=== PATIENT | female | born 1985 | race Caucasian/White ===

== ENCOUNTER 2023-02-05 21:13 | Observation (INO) | payer OTHER, SELFPAY ==
[2023-02-05 21:14] VITALS: BP 140/100; PULSE 77; RESP 15; TEMP 36.7; O2SAT 100; BMI 36.7
--- NOTE | 2023-02-05 21:26 | US_ITS ---
We are attempting to reach an attending provider to discuss findings. An addendum with communication details will be sent when the communication is complete. STUDY: FIRST TRIMESTER OBSTETRICAL ULTRASOUND REASON FOR EXAM: Female, 38 years old lower abdominal pain, +preg -- VAGINAL BLEEDING -- -- HCG 3242 LMP: 12/15/2022 TECHNIQUE: Transabdominal and Transvaginal Transvaginal images are limited. There is a distended appearance of the bladder on several images. TECHNICAL QUALITY: Adequate. The bladder is distended during this study. Limited transvaginal ultrasound. PRIOR ULTRASOUND: None. FINDINGS: There is no demonstrated intrauterine gestational sac. The estimated gestation age (EGA) by LMP is 7 weeks, 3 days. The uterus measures 10.7 x 6.0 x 7.1 cm measured at the radiologist workstation on transabdominal imaging.. The visualized thickened appearance of the endometrium measuring up to 1.6 cm to 3.1 cm.. There is no demonstrated uterine fibroid. The cervix is closed. The right ovary not visualized with certainty. The left ovary measures . There is no left ovarian cyst. There is no visualized left adnexal mass or complex lesion. The left adnexa there is a visualized complex appearing structure with a solid periphery measuring 3.6 cm and a hypoechoic center measuring 1.2 cm. There is no visualized internal echogenicity suggests that suggest a pole. This could potentially represent a complex follicle versus a early ectopic. See image 47 transabdominal views. There is also an adjacent cystic structure associated with a indeterminate almost tubular appearing density which could potentially represent a distended fallopian tube. There is moderate free fluid. US/Transvaginal w/Preg US IMPRESSION: No visualized gestational sac within the uterus. There is free fluid present. There is a complex appearance of the left ovary for which an ectopic is not excluded. In addition the right ovary is not visualized. There is visualized moderate free fluid which also can be associated with ectopic in a patient with a beta hCG of 3242. There is a tubular cystic structure which could potentially represent a distended left side fallopian tube and complex cyst. Image [id number] cini view. Thickened appearance of the endometrium. Electronically Signed: Kinsey Krishnamurthy MD at 0:46 EDT ,
[2023-02-05] MEDS: 0.9% Normal Saline (1000mL) 1,000 ML 1000 ML IV (22:15)
[2023-02-05] MEDS: Acetaminophen 325 MG Tablet PO (22:16)
[2023-02-05 22:22] LABS: Absolute Lymphocyte Count 1.32 X10^3/uL (0.83-4.51); Basophil# 0.02 X10^3/uL; Basophil% 0.2 % (0-1); Eosinophil# 0.01 X10^3/uL; Eosinophils% 0.1 % (0-5); Hematocrit 39.7 % (37-47); Hemoglobin 13.4 g/dL (12.0-15.0); Lymphocyte # 1.32 X10^3/ul (0.83-4.51); Lymphocyte % 15.2 % (19-41); Mean Corp Hgb Conc 33.8 g/dL (32-36); Mean Corpuscular Hgb 30.1 pg (27.0-32.0); Mean Corpuscular Volume 89.2 fL (81-99); Mean Platelet Vol. 10.8 fl (6.2-12.0); Monocyte# 0.34 X10^3/uL; Monocyte% 3.9 % (0-10); NRBC Flagged by Analyzer 0 % (0-5); Neutrophil # 6.97 X10^3/uL (2.7-7.7); Neutrophil % 80.3 % (47-70); Platelet Count 177 K/mm3 (150-450); RBC Distribution Width CV 12.2 % (11.6-14.6); RBC Distribution Width SD 39.8 fl (35.1-43.9); Red Blood Count 4.45 M/mm3 (4.2-5.4); White Blood Count 8.7 K/mm3 (4.4-11.0)
[2023-02-05 22:36] LABS: Anion Gap 7 (5-15); BUN 10 mg/dL (7-18); BUN/Creat Ratio 14.7 RATIO (10-20); Calcium,Total 9.5 mg/dL (8.5-10.1); Chloride 107 mmol/L (98-107); Creatinine, Serum 0.68 mg/dL (0.55-1.02); EST Glomerular Filtration Rate 103 mL/min (>60); Est Glom Filt Rate - Afr Amer 125 mL/min (>60); Estimated Creatinine Clearance 96.86 ml/min; Glucose 130 mg/dL (74-106); Potassium 3.6 mmol/L (3.5-5.1); Sodium Level 138 mmol/L (136-145)
[2023-02-05 22:41] LABS: Bacteria 0 SEEN /hpf (None Seen); Color, Urine Yellow (Yellow); Glucose, Dipstick Normal (Normal); Ketone-Dipstick Negative (Negative); Leukocyte Esterase-Dipstick 100 /ul (Negative); Mucous, Urine 0 SEEN /hpf (<or=2+); Nitrite-Dipstick Negative (Negative); Occult Blood-Urine 250 /ul (Negative); Protein-Dipstick 30 mg/dl (Negative); Urine Bilirubin Dipstick Negative (Negative); Urine Clarity Sl. Cloudy (Clear); Urine Urobilinogen Normal (Normal)
--- NOTE | 2023-02-05 22:56 | EDS_ITS ---
HPI HPI - GI History of Present Illness Chief Complaint: Abd Pain Narrative Narrative: 38-year-old female currently estimated to be 7 to 8 weeks last menstrual period at the beginning of November 2022. Patient complaining of abdominal pain which is lower and cramping. She had some spotting for several days now. She is unsure exactly of her blood type but she thinks it is a positive. No loss of fluid. No urinary symptoms. No diarrhea or constipation. Patient states she usually wakes to the second or third month to get a internal grinder. Patient A3. Has not had confirmed intrauterine PFSH PFSH Allergy/AdvReac Type Severity Reaction Status Date / Time No Known Allergies Allergy Verified 02/05/23 21:23 Social History Smoking Status: Never smoker ROS ROS ED Constitutional Constitutional ED: Denies chills, fever(s) or sweats Eyes Eyes: Denies blurry vision or change in vision ENT ENT ED: Denies ear pain or sore throat Cardiovascular Cardiovascular: Denies chest pain, palpitations or racing heartbeat Respiratory/Chest Respiratory/Chest: Denies cough, dyspnea or sputum Gastrointestinal Gastrointestinal: Reports abdominal pain; Denies constipation, diarrhea, nausea or vomiting Genitourinary Genitourinary ED: Reports other; Denies dysuria, hematuria or urinary frequency Musculoskeletal Musculoskeletal: Denies arthralgias, myalgias or neck pain Integumentary Denies abscess, Abrasions or rash Neurologic Neurologic: Denies headache(s), paresthesias or weakness Psychiatric Psychiatric: Denies anxiety, depression, suicidal ideation or suicidal thoughts Endocrine Endocrinology: Denies polydipsia or polyuria EXAM Physical Exam Const Vital Signs: 02/05/23 21:14 02/05/23 23:23 02/05/23 23:21 Temperature 98.1 F 98.8 F Temperature Source Temporal Oral Pulse Rate 77 63 58 L Respiratory Rate 15 18 18 Blood Pressure 140/100 H 82/52 L 70/45 L Blood Pressure Mean 113 62 53 Pulse Ox 100 97 95 Oxygen Delivery Method Room Air Room Air Room Air 02/05/23 23:19 02/05/23 23:23 02/06/23 00:07 Temperature Temperature Source Pulse Rate 57 L 62 72 Respiratory Rate 18 18 18 Blood Pressure 77/50 L 82/52 L 101/50 L Blood Pressure Mean 59 62 67 Pulse Ox 97 97 100 Oxygen Delivery Method Room Air Room Air Room Air 02/06/23 00:44 Temperature Temperature Source Pulse Rate 77 Respiratory Rate 18 Blood Pressure 119/73 Blood Pressure Mean 88 Pulse Ox 97 Oxygen Delivery Method Room Air Positive well nourished HEENT Reports moist mucous membranes normocephalic and atraumatic Eyes PERRL Neck no lymphadenopathy Resp normal respiratory effort Effort and Inspection: Negative for respiratory distress Cardio regular rate and regular rhythm GI GI Narrative: Bilateral lower quadrants. Gravid. No peritoneal signs. Back/Spine no CVA tenderness Neuro CN's II-XII intact bilaterally and moves all extremities Sensorium / Orientation: alert Motor Exam: strength 5/5 throughout Psych mental status grossly normal MDM MDM MDM Narrative Medical decision making narrative: 8-year-old female last menstrual period early November presenting with 7 to 8 weeks unconfirmed gestation. Differential includes for D&C, ectopic , ovarian cyst, ovarian torsion, uterine fibroids, threatened miscarriage. CBC will be obtained to assess white blood cell count, hemoglobin, platelets. BMP to assess renal function and electrolytes. Rh will be obtained as patient is unsure of her blood type. hCG quantitative will be obtained. Patient was given Tylenol for pain. She was given a liter normal saline. We will obtain obstetric ultrasound. CBC returned with a white blood cell count of 8.7. Hemoglobin stable 13.4. Platelets normal at 177. Patient became hypotensive 70/45. She started to have increasing left flank pain. hCG came back at 3242. Urinalysis was negative. BMP was unremarkable. Concern was for ruptured ectopic she was typed and screened for 2 units of blood. She is given 2 L of normal saline wide open. Her blood pressures have responded and she is now 119/73. She is not peritoneal. Obstetrics ultrasound shows concern for ectopic on the left which is likely ruptured. Discussed with OB who will take the patient to the OR. Impression: 1. Ruptured ectopic 2. Hypotension Lab Data Attestation: I reviewed the patient's lab results. Labs: Laboratory Results - last 24 hr 02/05/23 02/05/23 22:12 22:36 WBC 8.7 RBC 4.45 Hgb 13.4 Hct 39.7 MCV 89.2 MCH 30.1 MCHC 33.8 RDW Std Deviation 39.8 RDW Coeff of Tiffanie 12.2 Plt Count 177 MPV 10.8 Immature Gran % (Auto) 0.300 Neut % (Auto) 80.3 H Lymph % (Auto) 15.2 L [place] % (Auto) 3.9 Eos % (Auto) 0.1 Baso % (Auto) 0.2 Absolute Neuts (auto) 7.0 Absolute Lymphs (auto) 1.32 Nucleated RBC % 0 Sodium 138 Potassium 3.6 Chloride 107 Carbon Dioxide 24.0 Anion Gap 7 BUN 10 Creatinine 0.68 Estim Creat Clear Calc 96.86 Est GFR (MDRD) Af Amer 125 Est GFR (MDRD) Non-Af 103 BUN/Creatinine Ratio 14.7 Glucose 130 H Calcium 9.5 HCG, Quant 3242 H Urine Color Yellow Urine Clarity Sl. Cloudy Urine pH 7.0 Ur Specific [place] 1.010 Urine Protein 30 H Urine Glucose (UA) Normal Urine Ketones Negative Urine Occult Blood 250 H Urine Nitrite Negative Urine Bilirubin Negative Urine Urobilinogen Normal Ur Leukocyte Esterase 100 H Urine RBC 5-10 SEEN Urine WBC 0-5 SEEN Ur Squamous Epith Cells 0-5 SEEN Urine Bacteria 0 SEEN Urine Mucus 0 SEEN Blood Type A POSITIVE Crossmatch See Detail Radiography Diagnostic Testing: Clinical Impression(s) from Imaging Studies Obstetrics Ultrasound 02/05/23 21:26 IMPRESSION: No visualized gestational sac within the uterus. There is free fluid present. There is a complex appearance of the left ovary for which an ectopic is not excluded. In addition the right ovary is not visualized. There is visualized moderate free fluid which also can be associated with ectopic in a patient with a beta hCG of 3242. There is a tubular cystic structure which could potentially represent a distended left side fallopian tube and complex cyst. Image [id number] cini view. Thickened appearance of the endometrium. Electronically Signed: Kinsey Krishnamurthy MD at 0:46 EDT , Discharge Plan Triage Chief Complaint: Abd Pain ED Provider: Sami Fleming Dx/Rx/DC Orders Primary Care Provider: Fernando Garcia Referrals: Fernando Garcia, [Primary Care Provider] -
[2023-02-05 23:06] LABS: hCG Titer Quant., Serum 3242 mIU/mL (1-3)
[2023-02-05 23:10] LABS: Red Blood Cells-Urine 5-10 SEEN /hpf (0-5); Squamous Epithelial Cells - UA 0-5 SEEN /hpf (5-10); White Blood Cells 0-5 SEEN /hpf (0-5)
[2023-02-05 23:19] VITALS: BP 77/50; PULSE 57; RESP 18; O2SAT 97
[2023-02-05 23:21] VITALS: BP 70/45; PULSE 58; RESP 18; O2SAT 95
[2023-02-05 23:23] VITALS: BP 82/52; PULSE 62; PULSE 63; RESP 18; TEMP 37.1; O2SAT 97
[2023-02-05] MEDS: Ondansetron 4 MG/2 ML Vial IV (23:24)
[2023-02-05] MEDS: 0.9% Normal Saline (1000mL) 1,000 ML 999 ML IV (23:25)
--- NOTE | 2023-02-05 23:28 | ED.RN ---
pt notified staff pt was feeling like she could pass out. This nurse responded to room checked vitals and assessed pt. pt symptomatic hypotension with dizziness, sweating, pale. pt placed Trendelenburg position with some relief report. doctor notified.
[2023-02-06] VITALS (15 sets, daily range): BP systolic 83–139; BP diastolic 45–89; PULSE 67–88; RESP 16–18; TEMP 36.2–37.3; O2SAT 96–100; BMI 36.7
--- NOTE | 2023-02-06 | FAL_PTH ---
PATIENT: BONILLA ESTEVEZ LOC: MS3 U#:[id number] AGE/SX: 38/F ROOM: [facility] RE02/06/[address]: Dr. Vannessa Au DO : 1985 BED: 1 DIS: 02/07/2023 SPEC #: [id number] RECD: 02/07/23 08:50 STATUS: OLAYINKA PRESTON #: [id number] PEDRO: 02/06/23 00:[address]: Vannessa Au DEPT: SURGICAL PATHOLOGY RECD BY: Hung Johnson ENTERED: 02/07/23 09:44 SP TYPE: ECTOPIC OTHR DR: Dr. Fernando Garcia DO Tissues: ECTOPIC PREG Procedures: Surgery Specimen Level IV HEADER OPERATION: Diagnostic laparoscopic removal ectopic PRE-OP DIAGNOSIS: Ruptured ectopic TISSUE SUBMITTED: Left fallopian tube, partial left ovary and ectopic MICROSCOPIC DIAGNOSIS Left ovary and fallopian tube, salpingo-oophorectomy: Chorionic villi and decidualized tissue consistent with intratubal . Ovary with follicular, corpus luteal cysts and corpora albicantia. Fallopian tube with benign paratubal cysts. AM:jany 02/08/2023 MICROSCOPIC DESCRIPTION Slides are reviewed. GROSS DESCRIPTION Received in fixative is one container labeled with the patient's name and designated left fallopian tube and left ovary. The specimen consists of a cystic left ovary measuring 3.5 x 2.5 x 2.0 cm. Serial sections of the ovary reveal a yellow cyst measuring 2.0 cm in greatest dimension. Also present is an irregular fragment of tubular structure measuring 4.5 x 1.0 cm. Also present in the specimen container are multiple irregular fragments of blood clot measuring in aggregate 2.0 x 1.0 x 0.2 cm. Computer Compositor sections of the ovary and cyst are submitted in cassettes 1 & 2. The tubular structure is serially sectioned and totally submitted in cassettes 3-5 along with the blood clot. / AM:jayn 02/07/2023 TC:5 CPT: 72715
--- NOTE | 2023-02-06 00:51 | PCM.HP.OB ---
HPI - General General Date of Service: 02/06/23 Chief Complaint: abdominal pain HPI Narrative BONILLA ESTEVEZ, is a 38 F with no care who believes she is about 7-8 weeks gestation based on LMP presenting to the ER with severe abdominal pain. The abdominal pain began overnight and she describes it as being severe. She also has some vaginal spotting. She offers no other complaints at this time. She has had all vaginal deliveries and 1 prior section. She has not established with an clinical trials nurse. PFSH PFSH Allergy/AdvReac Type Severity Reaction Status Date / Time No Known Allergies Allergy Verified 02/05/23 21:23 Social History Smoking Status: Never smoker Vital Signs Vital Signs Vital Signs: 02/05/23 21:14 02/05/23 23:23 02/05/23 23:21 Temperature 98.1 F 98.8 F Temperature Source Temporal Oral Pulse Rate 77 63 58 L Respiratory Rate 15 18 18 Blood Pressure 140/100 H 82/52 L 70/45 L Blood Pressure Mean 113 62 53 Pulse Ox 100 97 95 Oxygen Delivery Method Room Air Room Air Room Air 02/05/23 23:19 02/05/23 23:23 02/06/23 00:07 Temperature Temperature Source Pulse Rate 57 L 62 72 Respiratory Rate 18 18 18 Blood Pressure 77/50 L 82/52 L 101/50 L Blood Pressure Mean 59 62 67 Pulse Ox 97 97 100 Oxygen Delivery Method Room Air Room Air Room Air 02/06/23 00:44 Temperature Temperature Source Pulse Rate 77 Respiratory Rate 18 Blood Pressure 119/73 Blood Pressure Mean 88 Pulse Ox 97 Oxygen Delivery Method Room Air Weight Weight: 214 lb Body Mass Index (BMI) 36.7 Physical Exam Const alert and no apparent distress Constitutional Narrative: Uncomfortable Resp normal respiratory effort GI GI Narrative: Diffusely tender, +guarding, soft Labs Labs Labs: Blood Type A POSITIVE Antibody Screen NEGATIVE Hct 39.7 % (37-47) Hgb 13.4 g/dL (12.0-15.0) Obstetrics US Assessment & Plan (1) Ectopic : PLAN: Patient presents to the ER with severe abdominal pain, known early , vaginal spotting. Pelvic ultrasound shows a left adnexal mass with free fluid. No intrauterine is noted. She has peritoneal findings on abdominal exam. +HCG quant. Concern for ruptured ectopic . Discussed risk, benefits, alternatives to a diagnostic laparoscopy, evacuation of hematoma, removal of ectopic , possible salpingectomy, possible oophorectomy with patient and partner at bedside. Consent obtained and she desires to proceed with surgery.
[2023-02-06] MEDS: Bupivacaine Mpf 0.5% 30 ML VIAL (02:42)
--- NOTE | 2023-02-06 05:00 | OP.PCM_ITS ---
Problems Associated Problem List Diagnoses (1) Ectopic : (2) Hypotension: Report of Operation Date of Procedure: 02/06/23 Pre-Operative Diagnosis: Ruptured ectopic , hemoperitoneum, hypotension Post-Operative Diagnosis: As above, adhesive disease Surgery/Procedure Performed:: Diagnostic laparoscopy, evacuation of hemoperitoneum, lysis of adhesions, removal of ectopic , partial left salpingectomy, partial left oophorectomy Description of Surgical Findings:: Upon entering the abdomen there was about 700 cc of blood and blood clot. There was a ruptured ectopic noted in the left fallopian tube. Brisk active bleeding was noted coming from the ruptured ectopic . She had a moderate amount of omental adhesions to the anterior abdominal wall. The colon was adhered to the left adnexa. Right fallopian tube and ovary were normal- appearing. The uterus was normal-appearing. A rectocele and uterine prolapse was noted on exam. Surgeon: Vannessa Au hvac installation technician: Denise COULTER hvac installation technician: Ej Coleman Type of Anesthesia: General Special Medications: None Specimen's removed: Ectopic , partial left fallopian tube, partial left ovary Drains: None Estimated Blood Loss (mL): 200 Fluids Replaced: 2 L Description of Procedure: The patient was taken back to the operating room where general anesthesia was induced. She was prepped and draped in the dorsal lithotomy position using yellowfin stirrups. From below a rectocele and uterine prolapse was noted. A weighted speculum was placed to expose the cervix. The anterior lip of the cervix was grasped with a single-tooth tenaculum. A uterine manipulator was placed. The weighted speculum was then removed. Gloves were changed and attention was turned to the abdominal portion of the procedure. Local was infiltrated at all port sites. An infraumbilical incision was made to accommodate a 5 mm port which was placed under direct visualization using the laparoscope. Once confirmed intraperitoneal, CO2 insufflation was initiated. No injury was noted upon entry. The patient was placed in Trendelenburg position. A right lateral 5 mm port was placed. A left lateral 5 mm port was placed. Omental adhesions were transected from the anterior abdominal wall using the LigaSure device in order to achieve visualization of the pelvis. About 700 mL of blood and blood clot were present in the pelvis. The blood and blood clot were removed using the suction acetylene torch solderer. The right adnexa was elevated out of the pelvis and noted to be normal-appearing. The right fallopian tube was normal. The right ovary was normal. The uterus was normal- appearing. The left fallopian tube was dilated and ruptured with an ectopic noted to be within the tube, and brisk active bleeding was noted coming from the left fallopian tube. The colon was noted to be adhered to the left fallopian tube and left ovary. Given the colon adhesions Dr. Coleman was called and present for assistance. Dr. Coleman assisted with taking down the adhesions of the colon to the left adnexa using blunt dissection. The left fallopian tube was also adhered to the left ovary. The ectopic was elevated and the LigaSure device was used to clamp, cauterized, and transected along the mesosalpinx. Because of the adhesions about one third of the ovarian tissue was removed. The ectopic with a portion of the left fallopian tube was removed. The ectopic with a portion of the left fallopian tube, and a portion of the left ovary were removed and placed on top of the uterus. The left adnexa was examined. The left cornua of the uterus was oozing from manipulation. The left broad ligament was slightly oozing from manipulation as well. The pelvis and left adnexa were irrigated. Powdered Surgicel was placed over the left cornua, the left broad, and the left adnexa. After inspection hemostasis was noted. At this point Dr. Coleman left the case. A size 5 Endo Catch bag was placed into the pelvis. The ectopic with the partial left fallopian tube and partial left ovary were placed in the Endo Catch bag and removed from the pelvis. The specimen was sent to pathology for review. The pelvis was again inspected and noted to be hemostatic. The abdomen was exsufflated. The skin was closed with 4-0 Monocryl. From below the uterine manipulator was removed. Vaginal bleeding was scant and a vaginal sweep was performed. Instrument, sponge, needle counts were correct. The patient was taken to recovery room in stable condition. The patient was given 2 units of PRBC's intra op. Denise COULTER assisted with the entire case from prepping and draping the patient, r emoval of the ectopic, and closure. Dr. Coleman assisted with lysis of adhesions of the colon to the left adnexa and removal of the ectopic . Grafts/Implants Used: None Procedure Start Time: 02:42 Procedure Stop Time: 03:44 Complications None Admit VTE Documentation VTE Mechan Device Prophylaxis: SCD's
[2023-02-06] MEDS: 0.9% Normal Saline (1000mL) 1,000 ML 15 ML IV (05:05)
[2023-02-06] MEDS: oxyCODONE 5 MG Tablet PO ×3 (08:14→18:14)
[2023-02-06] MEDS: Acetaminophen 500 MG Tablet 1000 MG PO ×3 (08:14→16:55)
[2023-02-06] MEDS: Ondansetron ODT 4 MG Tablet PO ×2 (08:15→16:56)
[2023-02-06 11:06] LABS: Hematocrit 33.4 % (37-47); Hemoglobin 11.4 g/dL (12.0-15.0); Mean Corp Hgb Conc 34.1 g/dL (32-36); Mean Corpuscular Hgb 31.3 pg (27.0-32.0); Mean Corpuscular Volume 91.8 fL (81-99); Mean Platelet Vol. 10.4 fl (6.2-12.0); Platelet Count 132 K/mm3 (150-450); RBC Distribution Width CV 12.9 % (11.6-14.6); RBC Distribution Width SD 43.5 fl (35.1-43.9); Red Blood Count 3.64 M/mm3 (4.2-5.4); White Blood Count 7.6 K/mm3 (4.4-11.0)
--- NOTE | 2023-02-06 11:40 | PN.OBGYN_ITS ---
Subjective Subjective The patient is doing well. Abdominal pain has improved since surgery. She is feeling some left shoulder pain. She has ambulated from the bed to the chair. She does need assistance with ambulation still and the Campos remains in place. Objective Data Objective Data Vital Signs: Vital Signs Temp Pulse Resp BP Pulse Ox O2 Del Method 98.8 F 82 18 116/68 97 Room Air 02/06/23 10:59 02/06/23 10:59 02/06/23 10:59 02/06/23 10:59 02/06/23 10:59 02/06/23 10:59 Oxygen Delivery Method Room Air Weight: 214 lb Body Mass Index (BMI) 36.7 Intake & Output: Intake and Output for Last 24 Hours 02/04/23 02/05/23 02/06/23 23:59 23:59 23:59 Intake Total 5450 / 5450 Output Total 1225 / 1225 Balance 4225 / 4225 Lab / Micro Data 02/06/23 10:57 02/05/23 22:12 Labs: Laboratory Results - last 24 hr 02/05/23 22:12: WBC 8.7, RBC 4.45, Hgb 13.4, Hct 39.7, MCV 89.2, MCH 30.1, MCHC 33.8, RDW Std Deviation 39.8, RDW Coeff of Tiffanie 12.2, Plt Count 177, MPV 10.8, Immature Gran % (Auto) 0.300, Neut % (Auto) 80.3 H, Lymph % (Auto) 15.2 L, [place] % (Auto) 3.9, Eos % (Auto) 0.1, Baso % (Auto) 0.2, Absolute Neuts (auto) 7.0, Absolute Lymphs (auto) 1.32, Nucleated RBC % 0, Sodium 138, Potassium 3.6, Chloride 107, Carbon Dioxide 24.0, Anion Gap 7, BUN 10, Creatinine 0.68, Estim Creat Clear Calc 96.86, Est GFR (MDRD) Af Amer 125, Est GFR (MDRD) Non-Af 103, BUN/Creatinine Ratio 14.7, Glucose 130 H, Calcium 9.5, HCG, Quant 3242 H, Blood Type Cancelled, Antibody Screen NEGATIVE, Crossmatch See Detail 02/05/23 22:36: Urine Color Yellow, Urine Clarity Sl. Cloudy, Urine pH 7.0, Ur Specific [place] 1.010, Urine Protein 30 H, Urine Glucose (UA) Normal, Urine Ketones Negative, Urine Occult Blood 250 H, Urine Nitrite Negative, Urine Bilirubin Negative, Urine Urobilinogen Normal, Ur Leukocyte Esterase 100 H, Urine RBC 5-10 SEEN, Urine WBC 0-5 SEEN, Ur Squamous Epith Cells 0-5 SEEN, Urine Bacteria 0 SEEN, Urine Mucus 0 SEEN 02/06/23 10:57: WBC 7.6, RBC 3.64 L, Hgb 11.4 L, Hct 33.4 L, MCV 91.8, MCH 31.3, MCHC 34.1, RDW Std Deviation 43.5, RDW Coeff of Tiffanie 12.9, Plt Count 132 L, MPV 10.4 Radiography Diagnostic Testing: Radiology Impression Obstetrics Ultrasound 02/05/23 21:26 IMPRESSION: No visualized gestational sac within the uterus. There is free fluid present. There is a complex appearance of the left ovary for which an ectopic is not excluded. In addition the right ovary is not visualized. There is visualized moderate free fluid which also can be associated with ectopic in a patient with a beta hCG of 3242. There is a tubular cystic structure which could potentially represent a distended left side fallopian tube and complex cyst. Image [id number] cini view. Thickened appearance of the endometrium. Electronically Signed: Kinsey Krishnamurthy MD at 0:46 EDT , ADDENDUM: 02/06/23 0055 IMPRESSION: No visualized gestational sac within the uterus. There is free fluid present. There is a complex appearance of the left ovary for which an ectopic is not excluded. In addition the right ovary is not visualized. There is visualized moderate free fluid which also can be associated with ectopic in a patient with a beta hCG of 3242. There is a tubular cystic structure which could potentially represent a distended left side fallopian tube and complex cyst. Image [id number] cini view. Thickened appearance of the endometrium. N.B. : The above Results were Read Back by Kinsey Krishnamurthy MD to Dr. Lonnie MD, and understanding confirmed on 02/06/2023 00:48:17 (ET). Electronically Signed: Kinsey Krishnamurthy MD at 0:46 EDT , Physical Exam Const alert and no apparent distress Constitutional Narrative: Nurse at bedside helping the patient to the chair GI soft to palpation GI Narrative: ATTP, non acute Assessment & Plan (1) Ectopic : PLAN: Patient is postoperative day 0 from laparoscopic removal of ectopic . Reviewed surgical findings with the patient. Discussed she is high risk for another ectopic in the future. Discussed concern for possible diverticulitis in the past given adhesions at time of surgery. Discussed future surgeries could be difficult given adhesive disease. Strongly advised to use contraception and avoid future pregnancies. Recommended a progesterone IUD and discussed this at length with patient and her . They will consider the IUD but at this time are declining contraception. She is status post 2 units of packed red blood cells. She is hemodynamically stable at this time. Continue to work on ambulation. Remove Campos once patient is able to ambulate better. Posttransfusion CBC reviewed and appropriate. Discussed with patient and nurse possible discharge tonight if patient is doing better, but she may need to stay another night with a repeat CBC in the morning. (2) Hypotension:
[2023-02-06] MEDS: 0.9% Normal Saline (1000mL) 1,000 ML 100 ML IV ×2 (12:00→20:42)
--- NOTE | 2023-02-06 12:05 | DCINST_ITS ---
Discharge Instructions Diet Discharge Diet: No restrictions Activity Discharge Activity: May Not Drive and May Shower May resume sexual activity in: 1-2 weeks (nothing in the vagina and no soaking in water) Ice area for (Minutes): 15 Weight Bearing Status: Weight bearing as tolerated Lifting Restrictions: nothing greater than 10-15 lbs Dressing / Incision Call your doctor if your incision/area has: Continuous Slow Oozing, Sudden Increased Bleeding, Increased Pain/ Swelling, Increased Redness, Foul Smelling Discharge and Swelling at the incision site Call your doctor if you observe: Fever of 101 or Higher, Coldness, Increased Pain, Numbness or Tingling, Change in Color, Inability to urinate, Inability to have a bowel movement, Using more than 1 pad per hour, Shortness of breath, Dizziness, Fainting spells, Swelling in the ankles, Chest pain, Increased palpitations (irregular heartbeat), Calf discomfort and Uncontrolled pain Suture Line Care: Avoid Pulling/Pushing and Avoid Pinching/Bending Cleanse incision/area with: Soap & Water Follow Up Care Please Follow Up With: Vannessa Au DO When: 1-2 weeks Test Results: Test results from this visit will be discussed in further detail at your follow- up appointment, if applicable. Discharge Plan Admission Admit Date/Time: 02/06/23 04:58 Primary Reason for Your Visit: surgery Attending Provider: Vannessa Au Primary Care Provider: Fernando Garcia Instructions Patient Instructions: Ectopic Lap Tx Discharge Orders/Prescriptions Prescriptions: New oxycodone 5 mg tablet 5 mg PO Q6H PRN (Reason: pain) 7 Days Qty: 10 0RF Referrals / Follow Up: Fernando Garcia DO [Primary Care Provider] - Disposition Disposition (needs filled in before D/C Order can be placed): Home, Self Care
[2023-02-06] MEDS: Ibuprofen 600 MG Tablet PO (16:55)
[2023-02-06] MEDS: 0.9% Saline Lock 10 ML Syringe IV (20:32)
[2023-02-07 00:09] VITALS: BP 114/78; PULSE 77; RESP 16; TEMP 37.1; O2SAT 98
[2023-02-07] MEDS: Acetaminophen 500 MG Tablet 1000 MG PO ×2 (00:15→07:31)
[2023-02-07 04:00] VITALS: BP 119/71; PULSE 74; RESP 16; TEMP 37.4; O2SAT 98
[2023-02-07] MEDS: Ibuprofen 600 MG Tablet PO ×2 (04:11→10:22)
[2023-02-07] MEDS: 0.9% Saline Lock 10 ML Syringe IV (04:12)
[2023-02-07 05:51] VITALS: TEMP 36.6
[2023-02-07 06:22] LABS: Hematocrit 28.9 % (37-47); Hemoglobin 9.6 g/dL (12.0-15.0); Mean Corp Hgb Conc 33.2 g/dL (32-36); Mean Corpuscular Hgb 30.9 pg (27.0-32.0); Mean Corpuscular Volume 92.9 fL (81-99); Platelet Count 111 K/mm3 (150-450); RBC Distribution Width CV 13.2 % (11.6-14.6); RBC Distribution Width SD 44.6 fl (35.1-43.9); Red Blood Count 3.11 M/mm3 (4.2-5.4); White Blood Count 3.9 K/mm3 (4.4-11.0)
[2023-02-07] MEDS: 0.9% Normal Saline (1000mL) 1,000 ML 100 ML IV (07:03)
[2023-02-07 09:15] VITALS: BP 120/65; PULSE 82; RESP 18; TEMP 36.8; O2SAT 99
--- NOTE | 2023-02-07 09:38 | PHA.DC.MC.R ---
Pharmacy [facility] has performed discharge medication reconciliation and counseling for this patient. The patient's discharge medication list was reviewed for discrepancies and discrepancies were resolved. The patient was counseled on the following discharge medications and changes in medications for homegoing were reviewed. The Reason for Use, instructions for use, and potential side effects were reviewed for all new medications. The patient's questions regarding all of their medications were answered. 1. Oxycodone 5 mg PO Q6H PRN pain The patient and patient's were able to verbally demonstrate an understanding of their discharge medications. Medications at Discharge Home Medications oxycodone 5 mg tablet 5 mg PO Q6H PRN pain 7 days #10 tabs 02/06/23
--- NOTE | 2023-02-07 10:37 | CASEMGMT ---
Pt nurse notified that pt is asking for transportation home through [facility] van. TC to [facility] who states they do not have any availability today. Pt nurse aware.
== END 2023-02-07 11:28 | disposition home or self-care (01) ==
LOC: ED 02-06 01:25 → SDC 02-06 01:33 → MS3 02-06 05:49
PROVIDERS: Emergency Medicine; Admitting Provider Obstetrics & Gynecology; Emergency Provider Student in an Organized Health Care Education/Training Program; PCP Family Medicine; Visit Provider Obstetrics & Gynecology
PROC: 10T24ZZ Resection of Products of Conception, Ectopic, Percutaneous Endoscopic Approach (ICD-10-PCS; CPT 59150; principal; 2023-02-06 02:00)
DX: O00.102 Left tubal pregnancy without intrauterine pregnancy (principal); O26.891 Other specified pregnancy related conditions, first trimester; N81.4 Uterovaginal prolapse, unspecified; K66.1 Hemoperitoneum; I95.9 Hypotension, unspecified; M25.512 Pain in left shoulder; Z3A.08 8 weeks gestation of pregnancy
CPT/HCPCS: 59151; 00840; 36415; 51702; 76817; 80048; 81001; 84702; 85025; 85027; 86850; 86900; 86901; 86920; 86922; 88305; 94668; 96361; 96374; 99221; 99285; J7030; P9016; A4216; G0378; J2405

== ENCOUNTER 2023-02-11 17:47 | Emergency (ER) | payer OTHER, SELFPAY ==
[2023-02-11 17:48] VITALS: BP 135/93; PULSE 88; RESP 16; TEMP 36.2; BMI 35.9
[2023-02-11 17:51] VITALS: BP 135/93; PULSE 88; RESP 16; TEMP 36.2
--- NOTE | 2023-02-11 18:28 | EDS_ITS ---
HPI History of Present Illness Chief Complaint: Abd Pain Informant: patient and spouse/S.O. Narrative Narrative: 5 days postop laparoscopic salpingectomy oophorectomy on the left side from ectopic followed by Dr. Au. 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 Doing well initially took oxycodone second day however got rid of it due to have many children at home. 2 days ago had family over an autistic 4-year-old accidentally landed on her abdomen. Yesterday had increasing mild discomfort using Advil today more burning. Took Advil 400 mg 4 hours ago. She called PCP told to call her oncology navigator office with nursing reporting go to urgent care and urgent care referred her here. No fevers chills. Normal bowel movement. No urinary symptoms. No vaginal symptoms. PFSH PFSH Home Medications oxycodone 5 mg tablet 5 mg PO Q6H PRN pain 7 days #10 tabs 02/06/23 [Rx Last Taken Unknown] Allergy/AdvReac Type Severity Reaction Status Date / Time No Known Allergies Allergy Verified 02/11/23 17:48 Social History Smoking Status: Never smoker ROS ROS ED Constitutional Constitutional ED: Denies chills, fever(s) or sweats Eyes Eyes: Denies change in vision ENT ENT ED: Denies dysphagia or sore throat Cardiovascular Cardiovascular: Denies chest pain, leg edema, palpitations or racing heartbeat Respiratory/Chest Respiratory/Chest: Denies cough, dyspnea or dyspnea on exertion Gastrointestinal Gastrointestinal: Reports other Details: Abdominal burning ; Denies abdominal pain, diarrhea, nausea or vomiting Genitourinary Genitourinary ED: Denies dysuria, hematuria or urinary frequency Musculoskeletal Musculoskeletal: Denies back pain, extremity pain or neck pain Integumentary Denies rash or wounds Neurologic Neurologic: Denies headache(s), paresthesias or weakness EXAM Physical Exam Const Vital Signs: 02/11/23 17:48 02/11/23 17:51 Temperature 97.2 F L 97.2 F L Temperature Source Temporal Temporal Pulse Rate 88 88 Respiratory Rate 16 16 Blood Pressure 135/93 H 135/93 H Blood Pressure Mean 107 107 Positive well nourished and well developed General Appearance ED: well developed and NAD HEENT Reports moist mucous membranes normocephalic and atraumatic Eyes PERRL, EOMs intact bilaterally and conjunctivae normal General Eye ED: Yes normal appearance of both eyes Neck no lymphadenopathy and supple General: Negative for tenderness Chest Wall Chest: Negative for tenderness Resp normal respiratory effort and normal air movement Effort and Inspection: symmetric chest movement; Negative for respiratory distress Cardio regular rate, regular rhythm and no murmurs Peripheral Pulses: pulses 2+ throughout GI GI Narrative: Normal distention lower abdomen, there is ecchymosis in the lower abdomen throughout, there is for laparoscopic incisions umbilical to lower 1 towards epigastrium with glue. These are clean and dry and intact. No guarding or rebound. Healing ecchymosis in the mid umbilical region now yellow in color. Palpation: Negative for guarding or rebound tenderness present Back/Spine no CVA tenderness and no thoracic nor lumbar tenderness Extremity normal to inspection General Extremety ED: Negative for edema or tenderness General Extremity: Negative for edema Neuro oriented x3 and no sensory deficits noted Sensorium / Orientation: awake and alert Skin no rashes or lesions noted and no wounds MDM MDM MDM Narrative Medical decision making narrative: Interventions / MDM: Differential diagnosis: Abdominal contusion, postop laparoscopic surgery Diagnosis considered but do not suspect: N/A My EKG interpretation: N/A Imaging independently reviewed and interpreted by myself: N/A External documents reviewed: N/A Test considered but not ordered:N/A ED course: Patient increasing burning sensation she is postop however had child excellently bumping into her abdomen. Normal bowel movements no fevers. Discussed likely inflammatory response. No postop issues at this time. I did discuss with on-call oncology navigator Dr. Huggins who agrees no further work-up. She will continue NSAIDs she will follow-up as an outpatient. Return precaution develop fevers chills worsening abdominal symptoms that could be infectious. All questions were answered. Re-evaluation: stable Disposition discussed with patient/family/significant other: Patient and significant other Case discussed with consulting clinician: N/A This note was generated with [employer] dictation software. It may contain incorrect words, spelling, and punctuation that were not noted in checking the note before signing. Discharge Plan Triage Chief Complaint: Abd Pain ED Provider: John Navarro Dx/Rx/DC Orders Clinical Impression: Visit for wound check, S/P ectopic Instructions: ED Wound Care Prescriptions: No Action oxycodone 5 mg tablet 5 mg PO Q6H PRN (Reason: pain) 7 Days Qty: 10 0RF Primary Care Provider: Fernando Garcia Referrals: Fernando Garcia DO [Primary Care Provider] - Vannessa Au DO [Med Staff - Active Staff] - Keep Vlad appointment Activity Restrictions/Additional Instructions: Wound healing appropriately, ecchymosis will improve with time. Likely increasing inflammatory response from injury from child 2 days ago. Continue Advil total 3 tabs for total 600 mg every 6 hours as needed. If you develop fevers chills or worsening symptoms return to the ED for reevaluation. Discussed with oncology navigator Dr. Huggins in the ED. Disposition Disposition: Home, Self Care Discharge Date/Time: 02/11/23 19:03
== END 2023-02-11 19:03 | disposition home or self-care (01) ==
PROVIDERS: Emergency Provider Emergency Medicine; PCP Family Medicine; Visit Provider Emergency Medicine
DX: Z51.89 Encounter for other specified aftercare (principal); Z87.59 Personal history of other complications of pregnancy, childbirth and the puerperium
CPT/HCPCS: 99282

== ENCOUNTER → 2025-02-04 | Outpatient (CLI) | payer SELFPAY, OTHER ==
--- NOTE | 2025-02-04 14:35 | CT_ITS ---
PROCEDURE: BRAIN/HEAD W/WO CONTRAST 02/04/2025 REASON FOR EXAM: RT SIDED HEADACHE, RT MAXILLARY PAIN TECHNIQUE: Procedure Code: CTBRWW Modality: CT Procedure: BRAIN/HEAD W/WO CONTRAST Coronal and Sagittal reconstruction series were provided. CONTRAST: VOLUME: mL One or more dose reduction techniques were used (e.g., Automated exposure control, adjustment of the mA and/or kV according to patient size, use of iterative reconstruction technique). FINDINGS: No acute intracranial hemorrhage. No midline shift. The ventricles are normal in size and configuration. No extra-axial fluid collection is identified. No fracture. The calvarium is intact. The visualized paranasal sinuses and mastoid air cells are clear. No abnormal enhancement pattern. CT/Brain/Head W/WO Contrast IMPRESSION: No acute intracranial CT abnormality. Reading Location: [id number]
== END | disposition home or self-care (01) ==
PROVIDERS: PCP Family Medicine; Referring Provider Nurse Practitioner Family; Visit Provider Nurse Practitioner Family
DX: R51.9 Headache, unspecified (principal); R68.84 Jaw pain
CPT/HCPCS: 70470; Q9967